=== PATIENT | male | born 2000 | race Asian ===

== ENCOUNTER 2022-09-21 19:56 | Emergency (ER) | payer MEDICAID ==
[2022-09-21 20:19] VITALS: BP 117/75
--- NOTE | 2022-09-21 20:28 | ED Physician Documentation ---
PD HPI URI - Stated complaint Stated Complaint: FEVER - Chief complaint Chief Complaint: Fever - History obtained from History obtained from: Patient - Additional information Additional information: Patient is a 22-year-old male with no significant past medical history presenting for evaluation of a fever.He has been feeling unwell since yesterday evening. He took a home COVID test which was positive.He last used DayQuil earlier this morning, NyQuil last night and and aspirin this evening.He did not have any acetaminophen or ibuprofen At home and the stores are closed for so he was unsure of where else to go for Medications For his fever. Reports some nasal congestion but otherwise denies cough, difficulty breathing, nausea or vomiting. He has been able to tolerate p.o. Review of Systems Constitutional: reports: Fever Nose: reports: Congestion Throat: denies: Sore throat Cardiac: denies: Chest pain / pressure Respiratory: denies: Dyspnea, Cough GI: denies: Abdominal Pain, Vomiting Musculoskeletal: denies: Back pain Neurologic: denies: Headache PD PAST MEDICAL HISTORY - Present Medications Home Medications: Ambulatory Orders Medication Instructions Recorded Confirmed Fluoxetine HCl 60 mg PO DAILY 09/21/22 09/21/22 - Allergies Allergies/Adverse Reactions: Allergies Allergy/AdvReac Type Severity Reaction Status Date / Time No Known Drug Allergies Allergy Verified 09/21/22 20:20 PD ED PE NORMAL - General General: Alert and oriented X 3, No acute distress, Well developed/nourished - HEENT HEENT: Atraumatic, Moist mucous membranes, Pharynx benign - Neck Neck: Supple, no meningeal sign - Cardiac Cardiac: RRR, No murmur - Respiratory Respiratory: No respiratory distress, Clear bilaterally - Abdomen Abdomen: Soft, Non tender - Derm Derm: Warm and dry - Extremities Extremities: No edema - Neuro Neuro: Alert and oriented X 3, No motor deficit, Normal speech Results - Vitals Vitals: Vital Signs - 24 hr 09/21/22 20:10 Temperature 38.9 C H Heart Rate 104 H Respiratory 18 Rate Blood Pressure 117/75 O2 Saturation 96 Oxygen O2 Source Room air PD MEDICAL DECISION MAKING - ED course ED course: Patient with fever and recent positive home COVID test. He is well-appearing with nonlabored breathing and normal oxygenation. He does not have medications at home for fever or headache and stores are closed today for the holiday so patient presented to the emergency department.Patient is tolerating p.o. He has no signs of meningitis.His lung sounds are clear. He was given medications for his fever and headache and counseled on continued supportive care. Departure - Departure Disposition: 01 Home, Self Care Clinical Impression: COVID-19 Condition: Stable Instructions: ED Viral Syndrome Comments: Continue to quarantine for COVID-19 per CDC guidelines. Please continue with acetaminophen or ibuprofen as needed for fevers and body aches, plenty of fluids/hydration and rest. Return to the ER with any worsening symptoms such as difficulty breathing or vomiting. Discharge Date/Time: 09/21/22 20:37
[2022-09-21] MEDS: ACETAMINOPHEN 500 MG TABLET PO STA (20:33)
[2022-09-21] MEDS: IBUPROFEN 800 MG TABLET PO STA (20:33)
== END 2022-09-21 20:37 | disposition home or self-care (01) ==
LOC: ED 19:56
DX: U07.1 COVID-19 (principal)
CPT/HCPCS: 99282; A9270